=== PATIENT | female | born 1950 | race Caucasian/White ===

== ENCOUNTER 2016-11-15 19:13 | Inpatient (IN) | payer MEDICARE ==
[~2016-11-15] VITALS: Ht 175.3 cm; Wt 86.3 kg
[~2016-11-15 19:13] MED LIST: ATEN25TA PO; ATEN5POW; CITA20TA9 PO; MVI,10VI2 PO; OMEP-110 PO; [UNRECOGNIZED DRUG - OTHER]
[2016-11-15] MEDS ORDERED: ASPIRIN 81 MG TABLET CHEW ONE (20:20)
[2016-11-15] MEDS ORDERED: ASPIRIN 81 MG TABLET CHEW PO ONE (20:30)
[2016-11-15 20:31] LABS: HEMATOCRIT 41.9 % (34.6-47.8); WHITE BLOOD COUNT 9.9 x10^3/uL (3.4-10)
[2016-11-15 20:35] LABS: BLOOD UREA NITROGEN 24 mg/dL (7-18)
[2016-11-15 20:38] LABS: IS PT STATUS REG ER OR PRE ER? YES
[2016-11-15] MEDS ORDERED: SODIUM CHLORIDE 0.9% 1,000 ML IV ONE (21:55)
[2016-11-15] MEDS ORDERED: MORPHINE SULFATE 4 MG/ML, 1ML IVPush PRN (22:00)
[2016-11-15] MEDS ORDERED: ONDANSETRON 2MG/ML, 2ML IVPush PRN ×2 (22:00→22:30)
[2016-11-15] MEDS ORDERED: NITROGLYCERIN 0.4 MG BOTTLE (25 TABS) SL PRN (22:30)
[2016-11-15] MEDS ORDERED: BISACODYL 10 MG SUPP PR PRN (22:30)
[2016-11-15] MEDS ORDERED: POLYETHYLENE GLYCOL 17 GM PACKET PO PRN (22:30)
[2016-11-15] MEDS ORDERED: morphine SULFATE 10 MG/ML, 1ML IVPush PRN (22:30)
[2016-11-15] MEDS ORDERED: ACETAMINOPHEN 325 MG TABLET PO PRN (22:30)
[2016-11-15] MEDS ORDERED: HYDR12.58 PO (23:15)
[2016-11-15 23:16] VITALS: BP 127/77
[2016-11-15] MEDS: SODIUM CHLORIDE FLUSH 10ML SYR IVF SCH (23:52)
[2016-11-16] MEDS: VALACYCLOVIR 500MG TABLET PO SCH ×2 (00:58→12:53)
[2016-11-16 02:18] VITALS: BP 111/69
[2016-11-16 02:28] LABS: ASPARTATE AMINO TRANSFERASE 17 U/L (15-37); BLOOD UREA NITROGEN 24 mg/dL (7-18)
[2016-11-16 02:32] LABS: HEMOGLOBIN 12.9 g/dL (11.7-16.4); IS PT STATUS REG ER OR PRE ER? NO; WHITE BLOOD COUNT 7.9 x10^3/uL (3.4-10)
[2016-11-16] MEDS ORDERED: ASPIRIN 81 MG TABLET EC PO SCH (06:00)
[2016-11-16 07:15] VITALS: BP 115/72
[2016-11-16 08:00] LABS: IS PT STATUS REG ER OR PRE ER? NO
[2016-11-16] MEDS ORDERED: REGADENOSON 0.4 MG/5 ML SYRINGE ONE (08:08)
[2016-11-16] MEDS ORDERED: AMLO2.5T PO (08:26)
[2016-11-16] MEDS: SODIUM CHLORIDE FLUSH 10ML SYR IVF SCH (08:32)
[2016-11-16] MEDS ORDERED: OMEPRAZOLE 20 MG CAPSULE.DR PO SCH (09:00)
[2016-11-16] MEDS ORDERED: SENNA/DOCUSATE TABLET PO SCH (09:00)
[2016-11-16] MEDS ORDERED: ATENOLOL 25 MG TABLET PO SCH (09:00)
[2016-11-16] MEDS ORDERED: CITALOPRAM 10 MG TABLET PO SCH (09:00)
[2016-11-16] MEDS ORDERED: AMLODIPINE 2.5 MG TABLET PO SCH (09:00)
[2016-11-16] MEDS ORDERED: POTASSIUM CHLORIDE 20 MEQ TAB.ER.PRT PO ONE ×2 (11:00→13:00)
[2016-11-16 12:50] VITALS: BP 132/80
[2016-11-16] MEDS ORDERED: VALA1000 PO (13:16)
[2016-11-16] MEDS ORDERED: ALPR0.25 PO ×3 (16:20→16:25)
== END 2016-11-16 16:57 | disposition home or self-care (01) | DRG 391 ==
LOC: ED 21:40 → EDIP 22:29 → 5SO 22:58
PROVIDERS: ADMIT Internal Medicine; ATTEND Internal Medicine
DX: K21.9 Gastro-esophageal reflux disease without esophagitis (principal); N17.0 Acute kidney failure with tubular necrosis; R07.9 Chest pain, unspecified; I10 Essential (primary) hypertension; E78.5 Hyperlipidemia, unspecified; E78.1 Pure hyperglyceridemia; F32.9 Major depressive disorder, single episode, unspecified; I35.8 Other nonrheumatic aortic valve disorders; R01.1 Cardiac murmur, unspecified; Z87.442 Personal history of urinary calculi; Z88.8 Allergy status to other drugs, medicaments and biological substances; Z90.49 Acquired absence of other specified parts of digestive tract; Z84.89 Family history of other specified conditions; Z82.49 Family history of ischemic heart disease and other diseases of the circulatory system; Z80.9 Family history of malignant neoplasm, unspecified; R21 Rash and other nonspecific skin eruption
CPT/HCPCS: 36415; 71010; 78452; 80048; 80053; 80061; 82040; 84439; 84443; 84484; 85025; 93005; 93017; 93306; 96360; J2785; A9502; C9898; J7030